=== PATIENT | female | born 1970 | race Caucasian/White ===

== ENCOUNTER 2017-03-29 18:56 | Emergency (ER) | payer OTHER ==
[~2017-03-29] VITALS: Ht 175.3 cm; Wt 61.6 kg
[~2017-03-29 18:56] MED LIST: DICYCLOMINE HCL20 MG PO; DULOXETINE HCL60 MG PO; FENTANYL1 EAC5 TD; FLEXERIL5 MG PO; GABAPENTIN600 MG PO; HYDROMORPHONE HC4 MG PO; METHADONE5 MG PO; MIRAPEX0.5 MG PO; OXYCODONE-APAP1 EAC6 PO; PANTOPRAZOLE SO40 MG PO; PERCOCET 5/31 TABLET PO; SKELAXIN800 MG PO; TRAZODONE HCL50 MG PO; VENTOLIN HFA18 GM IH; VICODIN 5-3001 EACH PO
[2017-03-29 20:03] LABS: BASOPHIL COUNT 0.1 K/uL (0-0.1); EOSINOPHIL (%) 4.1 % (0-5); EOSINOPHIL COUNT 0.4 K/uL (0-0.3); IMMATURE GRANULOCYTE (%) 0.6 % (0.0-0.7); IMMATURE GRANULOCYTE COUNT 0.1 K/uL; INSTRUMENT ABS NEUTROPHIL CT 3.5 K/uL; LYMPHOCYTE COUNT 4.3 K/uL (1.0-2.8); MCHC 33.1 G/DL (30.0-36.0); MCV 90.5 FL (83-99); MEAN PLAT.VOLUME 11.3 uM^3 (9.5-12.4); MONOCYTE (%) 7.4 % (3-12); MONOCYTE COUNT 0.7 K/uL (0-0.8); NEUTROPHIL COUNT 3.5 K/uL (1.8-6.4); PLATELET COUNT 168 K/uL (156-360); RBC DIS.WIDTH-CV 14.7 % (11.8-14.6); RBC DIS.WIDTH-SD 48.7 % (39-53); RED BLOOD COUNT 4.64 M/uL (3.80-5.20)
[2017-03-29 20:12] LABS: CHLORIDE 103 mEq/L (99-109); POTASSIUM 3.4 mEq/L (3.7-5.4); SODIUM 139 mEq/L (136-147)
[2017-03-29 20:14] LABS: GLUCOSE 79 mg/dL (70-99)
[2017-03-29 20:15] LABS: ANION GAP 13 MEQ/L (2-14)
[2017-03-29 20:16] LABS: TOTAL BILIRUBIN 0.3 mg/dL (0.0-1.0)
[2017-03-29 20:17] LABS: SERUM ETHYL ALCOHOL 175 mg/dL
[2017-03-29 20:18] LABS: ALKALINE PHOSPHATASE 234 IU/L (3-129); GFR ESTIMATE (CALCULATED) > 59 mL/min/
[2017-03-29 20:19] LABS: UREA NITROGEN (BUN) 15 mg/dL (9-23)
[2017-03-29 20:21] LABS: LIPASE 23 U/L (1.0-51.0)
[2017-03-29 20:37] LABS: AMPHETAMINE NEGATIVE (500 ng/mL); BARBITURATES NEGATIVE (200 ng/mL); BENZODIAZEPINES NEGATIVE (150 ng/mL); COCAINE NEGATIVE (150 ng/mL); INTERNAL CONTROLS VALID? YES; METHADONE PRESUMPTIVE POSITIVE (200 ng/mL); METHAMPHETAMINE NEGATIVE (500 ng/mL); OPIATES (MORPHINE) NEGATIVE (100 ng/mL); OXYCODONE NEGATIVE (100 ng/mL); PHENCYCLIDINE NEGATIVE (25 ng/mL); PROPOXYPHENE NEGATIVE (300 ng/mL); THC CANNABINOIDS PRESUMPTIVE POSITIVE (50 ng/mL); TRICYCLIC ANTIDEPRESSANTS NEGATIVE (300 ng/mL)
[2017-03-29 20:38] LABS: ADD MEDTOX COMMENT Y
[2017-03-30 01:23] VITALS: BP 118/63
== END 2017-03-30 01:23 | disposition home or self-care (01) ==
LOC: EME 18:56
PROVIDERS: Emergency Medicine
DX: F32.9 Major depressive disorder, single episode, unspecified (principal); F10.10 Alcohol abuse, uncomplicated; J44.9 Chronic obstructive pulmonary disease, unspecified; K21.9 Gastro-esophageal reflux disease without esophagitis; K31.84 Gastroparesis; Z87.442 Personal history of urinary calculi; F17.200 Nicotine dependence, unspecified, uncomplicated
CPT/HCPCS: 71010; 80053; 83690; 84999; 85025; 90837; 93005; 94640; 99281; 99285; G0480; J1630; J2310; J7030

== ENCOUNTER 2017-07-18 22:56 | Emergency (ER) | payer OTHER ==
[~2017-07-18] VITALS: Ht 172.7 cm; Wt 57.9 kg
[2017-07-18 23:52] LABS: HEMATOCRIT 41.5 % (36.0-46.0); MCH 30.6 PG (29.0-34.0); MCHC 34.5 G/DL (30.0-36.0); MCV 88.9 FL (83-99); MEAN PLAT.VOLUME 10.7 uM^3 (9.5-12.4); PLATELET COUNT 186 K/uL (156-360); RBC DIS.WIDTH-CV 13.6 % (11.8-14.6); RBC DIS.WIDTH-SD 44.4 % (39-53); RED BLOOD COUNT 4.67 M/uL (3.80-5.20); WHITE BLOOD COUNT 9.5 K/uL (4.1-10.2)
[2017-07-18 23:56] LABS: CHLORIDE 106 mEq/L (99-109); POTASSIUM 3.6 mEq/L (3.7-5.4); SODIUM 140 mEq/L (136-147)
[2017-07-18 23:58] LABS: GLUCOSE 89 mg/dL (70-99)
[2017-07-18 23:59] LABS: ANION GAP 8 MEQ/L (2-14)
[2017-07-19] LABS: TOTAL BILIRUBIN 0.4 mg/dL (0.0-1.0)
[2017-07-19 00:01] LABS: SERUM ETHYL ALCOHOL < 10 mg/dL
[2017-07-19 00:02] LABS: ALKALINE PHOSPHATASE 109 IU/L (3-129); GFR ESTIMATE (CALCULATED) > 59 mL/min/
[2017-07-19 00:03] LABS: UREA NITROGEN (BUN) 8 mg/dL (9-23)
[2017-07-19] MEDS ORDERED: NARCAN4 MG NS (02:59)
[2017-07-19 03:58] VITALS: BP 121/69
== END 2017-07-19 03:57 | disposition home or self-care (01) ==
LOC: EME → EDBD 22:56 → EME 22:56
PROVIDERS: Emergency Medicine
DX: T40.601A Poisoning by unspecified narcotics, accidental (unintentional), initial encounter (principal); J44.9 Chronic obstructive pulmonary disease, unspecified; G89.29 Other chronic pain; F17.200 Nicotine dependence, unspecified, uncomplicated; Z85.828 Personal history of other malignant neoplasm of skin; Z88.0 Allergy status to penicillin; Z88.6 Allergy status to analgesic agent; Z87.442 Personal history of urinary calculi
CPT/HCPCS: 80053; 81003; 85027; 99281; 99285; G0480